=== PATIENT | female | born 1990 | race Caucasian/White ===

== ENCOUNTER → 2018-07-11 | Outpatient (CLI) | payer OTHER ==
--- NOTE | 2018-07-11 11:37 | US ---
EXAMINATION TYPE: US pelvic complete DATE OF EXAM: 07/11/2018 COMPARISON: NONE CLINICAL HISTORY: R10.2 Pelvic and perineal pain. TECHNIQUE: Transabdominal (TA). Date of LMP: patient gave 12 weeks ago and has not resumed regular cycles. EXAM MEASUREMENTS: Uterus: 8.9 x 3.0 x 5.0 cm Endometrial Stripe: 0.7 cm Right Ovary: 2.8 x 2.5 x 1.8 cm Left Ovary: 3.2 x 2.9 x 2.4 cm 1. Uterus: Anteverted wnl 2. Endometrium: wnl 3. Right Ovary: wnl 4. Left Ovary: wnl 5. Bilateral Adnexa: wnl 6. Posterior cul-de-sac: no free fluid IMPRESSION: No distinct abnormality appreciated.
== END | disposition home or self-care (01) ==
LOC: RADUSWWP 10:58
PROVIDERS: ATTEND Internal Medicine
DX: R10.2 Pelvic and perineal pain (principal)
CPT/HCPCS: 76856